=== PATIENT | male | born 1955 | race Caucasian/White ===

== ENCOUNTER 2019-10-07 01:52 | Day surgery (SDC) | payer BC, SELFPAY ==
[2019-09-25 07:52] VITALS: BP 160/84; PULSE 68; RESP 20; TEMP 36.6; O2SAT 96; BMI 30.6
[2019-10-07] VITALS (12 sets, daily range): BP systolic 101–155; BP diastolic 74–96; PULSE 55–79; RESP 12–20; TEMP 36.1–37.1; O2SAT 93–99
--- NOTE | ~2019-10-07 | XR_ITS ---
EXAMINATION: XR knee LT 2V DATE: 10/07/2019 15:08 INDICATION: Postoperative evaluation following left total knee arthroplasty. TECHNIQUE: Anteroposterior and lateral views of the left knee were obtained. COMPARISON: None. FINDINGS: Left total knee arthroplasty with patellar resurfacing appears well seated and in near anatomic align ment. No fractures identified. Expected postoperative subcutaneous and intra-articular gas. IMPRESSION: 1. Left total knee arthroplasty, negative for postoperative purposes. Reviewed, dictated and finalized at location [facility] [employer]
--- NOTE | 2019-10-07 08:55 | P.PNAN_ITS ---
Anes - Initial Pre Proc Eval Procedure: Operation Date: 10/07/19 10:30 Proposed Procedures p Left Total Knee Arthroplasty, Right Knee Injection - Solis Fuentes MD Date/Time: 10/07/19 08:55 Surgeon: Solis Fuentes MD Pre Op Diagnosis: OA Osvaldo Knee Patient Data Age: 63 Gender: M Height: 1.85 m Weight: 105.2 kg Last Vital Signs Temp 36.6 C 09/25/19 07:52 Pulse 68 09/25/19 07:52 Resp 20 09/25/19 07:52 BP 160/84 H 09/25/19 07:52 Pulse Ox 96 09/25/19 07:52 Allergies Allergy/AdvReac Type Severity Reaction Status Date / Time No Known Allergies Allergy Verified 09/25/19 08:16 Home Medications Medication Instructions Recorded Confirmed Type acetaminophen [Tylenol Extra 1,000 mg PO Q6H PRN 09/25/19 09/25/19 History Strength] cranberry 400 mg PO DAILY 09/25/19 09/25/19 History glucosamine sulfate [Glucosamine] 1,000 mg PO BID 09/25/19 09/25/19 History ibuprofen 200 mg PO DAILY PRN 09/25/19 09/25/19 History potassium chloride 10 meq PO DAILY 09/25/19 09/25/19 History pseudoephedrine HCl [Sudafed] 30 mg PO Q4-6H PRN 09/25/19 09/25/19 History Patient hx anesthesia problems: none Family hx anesthesia problems: none PMFSH Past Medical History Medical History (Updated 09/12/19 @ 09:53 by Solis Fuentes MD) Osteoarthritis of knee Surgical History Surgical History History of appendectomy Status post arthroscopic knee surgery Both knees Social History Social History Alcohol intake: current Additional occupation/education comments: [employer] Anes - Eval Final PreProcedure Day of Procedure 10/07/19 08:55 Patient weight: obese Heart: regular rate and rhythm Lungs: clear to auscultation and normal air movement Airway: Mallampati scale class II Neurological: alert and oriented Last oral intake: >/= 8 hours ASA classification: II Emergent: no Anesthetic plan: proceed Anesthesia type and monitoring: regional spinal and standard monitoring Informed Consent: The patient's anesthetic plan and its attendant risks and benefits were discussed with the patient/family/POA. Questions were solicited and answers provided to the satisfaction of the patient/family/POA.
--- NOTE | 2019-10-07 08:56 | WPDANESPNB ---
Anes - Peripheral Nerve Block Date/Time: 10/07/19 08:56 I have discussed with the patient/family/POA the placement of a peripheral nerve block for post-operative pain management, including associated risks, benefits, complications, and side effects. Alternative methods of post-operative analgesia were detailed. Questions were solicited and answers provided to the satisfaction of the patient/family/POA. Time-Out: A pre-procedural Time-Out was completed immediately before starting the procedure and confirmed: Patient Identification, Site, Procedure, Patient Position and the Availability of Requisite Equipment. Clinical Indications: Acute post-operative pain management requested by the operative surgeon. Nerve Block Insertion Note Anes-nerve block: adductor canal left Patient position: supine Skin prep: chlorhexidine Needle: 22 gauge, stimulating, insulated echogenic needle. Needle length: 80 mm Technique: ultrasound Injectate: bupivacaine 0.5% with epi 5 mcg/ml (30cc) Observations: tolerated well Complications: none Procedure start time:: 1133 Procedure end time:: 1135
[2019-10-07] MEDS: LACTATED RINGERS 1,000 ML 30 ML IV CONT ×2 (09:30→14:50)
[2019-10-07] MEDS: TRANEXAMIC ACID 1,000 MG in SODIUM CHLORIDE 0.9% IV 50 ML 120 MG IVPB (11:00)
--- NOTE | 2019-10-07 11:17 | WPDHPUPDATE1 ---
History and Physical Update Update Date/Time: 10/07/19 11:17 History and Physical has been reviewed, including an updated exam of the patient. There are NO changes in the patient's condition. Risks, benefits, and alternatives have been discussed and questions answered. Patient agrees to proceed with procedure.
[2019-10-07] MEDS: ceFAZolin 2 GM/D5W 50 ML 2 GM/50 ML BAG IVPB ×2 (12:26→20:43)
[2019-10-07] MEDS: TRANEXAMIC ACID 1,000 MG/10 ML AMPUL 1000 MG XX (12:53)
[2019-10-07] MEDS: TRIAMCINOLONE ACET INJ SUSP 50 MG/5 ML VIAL 20 MG IM (12:54)
[2019-10-07] MEDS: GENTAMICIN BONE CEMENT REFOBACIN 1 EACH TOPICAL (13:07)
[2019-10-07] MEDS: ceFAZolin SODIUM 1 GM VIAL IV PUSH (13:57)
--- NOTE | 2019-10-07 16:26 | P.OP_ITS ---
Procedure Note - Detailed Date of procedure: 10/07/19 Pre-op diagnosis: OA Osvaldo Knee Post-op diagnosis: same Procedure performed: 1. Left total knee replacement 2. Right knee intra-articular injection Description of procedure: The patient was identified and proper site identified. In the preop holding area the anesthesia team performed a left sub sartorial block after which the patient was taken to the operating room and transferred to the OR table positioning supine taking care to pad the torso and extremities. After a spinal anesthetic was administered, a nonsterile tourniquet was placed high on the left thigh. The left lower extremity was prepped and draped in the usual sterile fashion. The extremity was exsanguinated and with the knee flexed tourniquet was inflated to 300 mmHg remaining up for approximately 75 minutes. An anterior midline incision was made and a mid vastus approach was used. Infra and suprapatellar fat pads were excised. Patella was resected leaving 15 mm thickness and prepared for the 31 round three peg component. Using the intramedullary guide the distal femur was cut in the proper orientation for the size 72.5 femoral component. Using the extramedullary guide the tibia was cut perpendicular to the long axis protecting collateral ligaments and popliteal structures. It was sized to a 75. Flexion and extension gaps were balanced. Trial reduction was undertaken and the weight-bearing line was noted to passed through the center of the joint. Proximal tibia was drilled and punched in the proper orientation for the real component. Trial components were removed. The bone surfaces were washed with pulsatile lavage and dried. The real components were cemented simultaneously. The knee was held in extension and the patella held clamped until the cement had cured. Excess cement was removed from the joint. After trialing it was determined that the 10 mm insert gave full range of motion from 0-120 degrees of flexion and the patella tracked in the femoral groove with no lift-off. After final lavage the joint the real 10 insert was placed and secured with a locking bar. A Betadine and saline wash was placed into the wound and allowed to sit for approximately 3 minutes and then evacuated. Periarticular tissues were infiltrated with 60 cc of the arthroplasty solution. 1 g of tranexamic acid was left in the wound. The extensor mechanism was repaired with #2 Vicryl suture and 0 looped PDS suture. Subcu was reapproximated with three 0 Monocryl, and a two 0 strata fix subcuticular stitch with tissue adhesive for the skin. A sterile dressing was applied. He tolerated the procedure well, was awakened and extubated, transferred to the bed and was taken to recovery area in stable condition. There were no known intraoperative complications. Perioperative antibiotics were administered. Anesthesia: regional and spinal Surgeon: Solis Fuentes MD [employer]er: Doc Dennison Estimated blood loss (mL): 200 Tourniquet time (min): 75 Drains: No Packing: No Pathology: none sent Complications: No immediate complications Condition: stable Disposition: PACU
[2019-10-07] MEDS: SODIUM CHLORIDE 0.9% IV 1,000 ML 125 ML IV CONT (17:41)
[2019-10-07] MEDS: KETOROLAC 15 MG/ML VIAL (*BKC) IV PUSH (17:44)
[2019-10-07] MEDS: DOCUSATE SODIUM 100 MG CAPSULE PO (18:57)
[2019-10-08] MEDS: KETOROLAC 15 MG/ML VIAL (*BKC) IV PUSH ×2 (00:38→05:27)
[2019-10-08 01:05] VITALS: BP 109/53; PULSE 57; RESP 20; TEMP 36.8; O2SAT 97
[2019-10-08] MEDS: ceFAZolin 2 GM/D5W 50 ML 2 GM/50 ML BAG IVPB ×2 (04:58→11:46)
[2019-10-08 06:50] VITALS: BP 130/68; PULSE 58; RESP 20; TEMP 36.7; O2SAT 96
--- NOTE | 2019-10-08 06:55 | PM.PNORT ---
Progress Note: A&P Assessment and Plan (1) History of total knee replacement: Code(s): Z96.659 - Presence of unspecified artificial knee joint Status: Acute Assessment and Plan: 63-year-old male who is postop day one following left total knee replacement and doing very well. The surgery was discussed with him in detail. Will be discharged home today after 2nd physical therapy. He will follow up with me in approximately two weeks. I asked him to call with any questions prior to follow-up. Time Spent With Patient Time with patient: 15 - 25 minutes Subjective Subjective Date/Time Seen: 10/08/19 06:55 Post Op day: 1 Principal diagnosis: Status post left total knee replacement Review of Systems Constitutional: Constitutional: Denies chills and Denies fever(s) Eyes: Eyes: Reports no additional eye complaints ENT: Reports system reviewed and no additional complaints, except as documented Cardiovascular: Cardiovascular: Denies chest pain and Denies dyspnea on exertion Respiratory: Respiratory: Reports no additional respiratory complaints and Denies dyspnea on exertion Gastrointestinal: Gastrointestinal: Denies abdominal pain and Denies bloating Exam Const: General: cooperative, no acute distress and alert Nutritional Appearance: other Orientation/consciousness: patient oriented x3 Limitations: no limitations HENMT: Head: normal to inspection Ears: hearing grossly normal bilaterally Face and sinus: face symmetric Mouth: Yes moist mucous membranes Teeth and gingiva: fair dentition Eyes: Alignment and Position: alignment normal and position normal Sclera: sclerae normal Neck: Neck: normal visual inspection and nontender Chest: Chest palpation & inspection: normal inspection of the chest Resp: Effort & Inspection: normal respiratory effort and able to speak in complete sentences GI: Inspection: other Skin: General skin exam: normal color Rashes: no rashes Neuro: General: patient oriented x3 Cognition (Neuro): normal cognition Speech: normal speech Gait exam (Neuro): Other gait observations present Motor exam (neuro): 5/5 motor strength present throughout (Both lower extremities) Sensory Exam: normal sensation Extrem: General: normal to inspection and other Other: Exam of the left lower extremity reveals some bruising about the left knee anteriorly but very little swelling. No drainage from the incision. Calves are negative. Exam is otherwise unremarkable. Psych: Appearance: grossly normal Mental Status: mental status grossly normal Objective Data Vital Signs Vital Signs: Vital Signs - 24 hr 10/07/19 08:36 10/07/19 14:50 10/07/19 15:00 Temperature 97.0 F L 98.1 F Pulse Rate 69 79 66 Respiratory Rate 18 13 12 Blood Pressure 141/96 H 137/82 101/84 Pulse Oximetry 97 99 95 10/07/19 15:15 10/07/19 15:30 10/07/19 15:45 Temperature Pulse Rate 62 60 56 L Respiratory Rate 16 12 12 Blood Pressure 137/80 126/75 142/84 H Pulse Oximetry 97 94 95 10/07/19 16:00 10/07/19 16:15 10/07/19 16:30 Temperature 98.8 F 98.6 F Pulse Rate 57 L 55 L 58 L Respiratory Rate 12 18 18 Blood Pressure 142/78 H 150/83 H 154/82 H Pulse Oximetry 94 97 99 10/07/19 17:00 10/07/19 18:00 10/07/19 20:40 Temperature 98.6 F 98.6 F 98.1 F Pulse Rate 61 66 78 Respiratory Rate 18 20 20 Blood Pressure 155/93 H 135/81 133/74 Pulse Oximetry 98 97 93 10/08/19 01:05 10/08/19 06:50 Temperature 98.3 F 98.1 F Pulse Rate 57 L 58 L Respiratory Rate 20 20 Blood Pressure 109/53 L 130/68 Pulse Oximetry 97 96 Intake/Output Intake/Output: Intake & Output 10/05/19 10/06/19 10/07/19 10/08/19 23:59 23:59 23:59 23:59 Intake Total 1420 / 1420 2370 / 2370 Output Total 1325 / 1025.0 1400 / 1400 Balance 95 / 395.0 970 / 970 Meds/Results Medications: Active Medications Generic Name Dose Route Start Last Admin Trade Name Freq PRN Reason Stop Dose Admin Docusate Sodium 100 mg 09/19
--- NOTE | 2019-10-08 07:05 | WPDANESPN ---
Anes - Prog Note Post-Op Date/Time: 10/08/19 07:05 Cardiovascular status: normal Respiratory status: normal Airway patency: baseline Mental status: baseline Post-Op hydration status: normal Vital Signs: Last Vital Signs Temp 36.7 C 10/08/19 06:50 Pulse 58 L 10/08/19 06:50 Resp 20 10/08/19 06:50 BP 130/68 10/08/19 06:50 Pulse Ox 96 10/08/19 06:50 I/O: Intake & Output 10/07/19 10/07/19 10/08/19 15:59 23:59 07:59 Intake Total 210 1210 2370 Output Total 1325 1400 Balance 210 -115 970 Post-procedural complaints: none Patient Feedback: Patient satisfied with anesthetic care.
[2019-10-08] MEDS: DOCUSATE SODIUM 100 MG CAPSULE PO (09:34)
[2019-10-08] MEDS: POTASSIUM CHLORIDE 10 MEQ TABLET.ER PO (09:34)
[2019-10-08] MEDS: RIVAROXABAN 10 MG TABLET PO (12:34)
== END 2019-10-08 14:00 | disposition home or self-care (01) ==
LOC: ANHSURGERY 13:14 → ANH3MEDSUR 10-08 12:43
PROVIDERS: PCP Internal Medicine; Visit Provider Orthopaedic Surgery
PROC: (CPT 27447; principal; 2019-10-07 10:30)
DX: M17.0 Bilateral primary osteoarthritis of knee (principal); G89.18 Other acute postprocedural pain
CPT/HCPCS: 27447; 20610; 64447; 73560; 97110; 97116; 97161; 97165; 97530; A9270; C1713; C1776; J0131; J0171; J0690; J1885; J2250; J2270; J2370; J2405; J2704; J2795; J3010; J3301; J7030; J7120

== ENCOUNTER 2019-11-11 01:51 | Day surgery (SDC) | payer BC, SELFPAY ==
[2019-11-07 08:48] VITALS: BMI 30.2
[2019-11-11] VITALS (8 sets, daily range): BP systolic 133–157; BP diastolic 74–92; PULSE 64–89; RESP 12–18; TEMP 36.1–36.3; O2SAT 96–99
--- NOTE | 2019-11-11 08:10 | P.PNAN_ITS ---
Anes - Initial Pre Proc Eval Procedure: Operation Date: 11/11/19 10:30 Proposed Procedures p Evaluation Under Anesthesia of Left Total Knee - Solis Fuentes MD Date/Time: 11/11/19 08:10 Surgeon: Solis Fuentes MD Pre Op Diagnosis: stiffness of left total knee replacement Patient Data Age: 64 Gender: M Height: 1.83 m Weight: 101.15 kg Allergies Allergy/AdvReac Type Severity Reaction Status Date / Time No Known Allergies Allergy Verified 11/07/19 08:48 Home Medications Medication Instructions Recorded Confirmed Type cranberry 400 mg PO DAILY 09/25/19 11/07/19 History glucosamine sulfate [Glucosamine] 1,000 mg PO DAILY 09/25/19 11/07/19 History cyclobenzaprine 10 mg tablet 10 mg PO Q12H #20 tablet 10/29/19 11/07/19 Rx acetaminophen [Tylenol Arthritis 650 mg PO Q8H 11/07/19 11/07/19 History Pain] Patient hx anesthesia problems: none Family hx anesthesia problems: none PMFSH Past Medical History Medical History (Updated 11/11/19 @ 08:12 by Camilo Gillette MD) Obesity Osteoarthritis of knee Surgical History Surgical History (Updated 11/07/19 @ 08:12 by Solis Fuentes MD) History of appendectomy History of total left knee replacement September 2019 Status post arthroscopic knee surgery Both knees Social History Social History Smoking status: Former smoker Tobacco type: cigarettes Additional smoking assessment comments: 1 pack/6 months Alcohol intake: current Drinks per week: 10 Substance use: never Additional occupation/education comments: [employer] Spiritual care concerns: No Agree to blood products: Yes Anes - Eval Final PreProcedure Day of Procedure 11/11/19 08:10 Patient weight: obese Heart: regular rate and rhythm Lungs: clear to auscultation and normal air movement Airway: Mallampati scale class II Neurological: alert and oriented Last oral intake: >/= 8 hours ASA classification: II Emergent: no Anesthetic plan: proceed Anesthesia type and monitoring: general GIVS Informed Consent: The patient's anesthetic plan and its attendant risks and benefits were discussed with the patient/family/POA. Questions were solicited and answers provided to the satisfaction of the patient/family/POA.
[2019-11-11] MEDS: LACTATED RINGERS 1,000 ML 30 ML IV CONT (09:00)
--- NOTE | 2019-11-11 09:12 | WPDANESPNB ---
Anes - Peripheral Nerve Block Date/Time: 11/11/19 09:12 I have discussed with the patient/family/POA the placement of a peripheral nerve block for post-operative pain management, including associated risks, benefits, complications, and side effects. Alternative methods of post-operative analgesia were detailed. Questions were solicited and answers provided to the satisfaction of the patient/family/POA. Time-Out: A pre-procedural Time-Out was completed immediately before starting the procedure and confirmed: Patient Identification, Site, Procedure, Patient Position and the Availability of Requisite Equipment. Clinical Indications: Acute post-operative pain management requested by the operative surgeon. Nerve Block Insertion Note Anes-nerve block: adductor canal left Patient position: supine Skin prep: chlorhexidine Needle: 22 gauge, stimulating, insulated echogenic needle. Needle length: 80 mm Technique: ultrasound Technique comment: in plane Injectate: bupivacaine 0.5% with epi 5 mcg/ml (30cc) and dexamethasone (mg) (4) Observations: tolerated well Complications: none Procedure start time:: 1030 Procedure end time:: 1034
--- NOTE | 2019-11-11 10:16 | WPDHPUPDATE1 ---
History and Physical Update Update Date/Time: 11/11/19 10:16 History and Physical has been reviewed, including an updated exam of the patient. There are NO changes in the patient's condition. Risks, benefits, and alternatives have been discussed and questions answered. Patient agrees to proceed with procedure. As noted in the addendum to the H and P, this is a left knee that is going to be evaluated today.
--- NOTE | 2019-11-11 11:32 | PM.PROC ---
Procedure Note - Detailed Date of procedure: 11/11/19 Pre-op diagnosis: stiffness of left total knee replacement Post-op diagnosis: same Procedure performed: EUA left knee with manipulation under anesthesia. Description of procedure: Patient was identified and proper site identified. In the preop holding area the anesthesia team performed a left lower extremity block. He was then taken to the operating room and left on the patient to [facility]. After general anesthetic induction with innovation and administration of brief paralysis, the left knee was examined. Pre manipulation is range of motion was from minus three to approximately 70? of flexion. A gentle manipulation we was carried out which increases flexion to 115?. There were no known complications. He was awakened, extubated and then taken back to the recovery area in stable condition. Anesthesia: GLMA Surgeon: Solis Fuentes MD Estimated blood loss (mL): 0 Tourniquet time (min): 0 Drains: No Packing: No Pathology: none sent Complications: No immediate complications Condition: stable Disposition: PACU
== END 2019-11-11 13:14 | disposition home or self-care (01) ==
PROVIDERS: Visit Provider Orthopaedic Surgery
PROC: (CPT 27570; principal; 2019-11-11 10:30)
DX: M25.662 Stiffness of left knee, not elsewhere classified (principal); Z96.652 Presence of left artificial knee joint; E66.9 Obesity, unspecified; Z68.29 Body mass index [BMI] 29.0-29.9, adult; Z87.891 Personal history of nicotine dependence
CPT/HCPCS: 27570; A9270; J0330; J1100; J2250; J2405; J2704; J3010; J7120

== ENCOUNTER 2020-02-28 00:10 | Outpatient (CLI) | payer BC, SELFPAY ==
[2020-02-28 17:48] LABS: SARS-CoV-2 RNA PCR Negative
== END 2020-02-28 00:11 | disposition home or self-care (01) ==
LOC: ANHCOVIDDT 00:10
PROVIDERS: Visit Provider Orthopaedic Surgery
DX: Z01.812 Encounter for preprocedural laboratory examination (principal); Z20.828 Contact with and (suspected) exposure to other viral communicable diseases
CPT/HCPCS: 87635; C9803; U0003

== ENCOUNTER 2020-02-28 07:53 | Outpatient (CLI) | payer BC, SELFPAY ==
[2020-02-28 08:21] LABS: Basophils Absolute Auto 0.1 K/mm3 (0.0-0.1); Basophils Percent Auto 1.1 % (0.2-1.2); Eosinophils Percent Auto 0.9 % (0-4.4); Hematocrit 51.3 % (42.0-52.0); Immature Granulocyte Absolute 0.01 K/mm3 (0.00-0.031); Immature Granulocyte Percent A 0.2 % (0-0.5); Lymphocytes Absolute Auto 1.74 K/mm3 (0.9-3.2); Lymphocytes Percent Auto 37.5 % (18.3-44.2); Mean Corpuscular HGB Conc 33.1 g/dl (32-36); Mean Corpuscular Hemoglobin 32.4 pg (26-34); Mean Corpuscular Volume 97.7 fl (80-100); Mean Platelet Volume 10.9 fl (7.4-10.4); Monocytes Absolute Auto 0.5 K/mm3 (0.1-0.6); Monocytes Percent Auto 9.7 % (2.6-8.5); Neutrophils Absolute Auto 2.4 K/mm3 (1.3-6.7); Neutrophils Percent Auto 50.6 % (45.5-73.1); Platelet Count Result 282 k/mm3 (150-375); Red Blood Count 5.25 M/mm3 (4.6-6.20); White Blood Count 4.6 K/mm3 (4.5-10.0)
[2020-02-28 08:33] LABS: Hemoglobin A1C 5.7 % (<5.7)
[2020-02-28 08:34] LABS: Urine Cotinine NEGATIVE
[2020-02-28 08:35] LABS: Albumin Level 4.8 g/dL (3.5-5.1); Estimated Glomerular Filt Rate > 60; Glucose 102 mg/dL (75-110)
== END 2020-02-28 07:54 | disposition home or self-care (01) ==
LOC: ANHSURGERY 07:56
PROVIDERS: PCP Internal Medicine; Visit Provider Orthopaedic Surgery
DX: M17.11 Unilateral primary osteoarthritis, right knee (principal); Z01.812 Encounter for preprocedural laboratory examination
CPT/HCPCS: 36415; 80307; 82040; 82565; 82947; 83036; 85025; 86850; 86900; 86901; 87081

== ENCOUNTER 2020-03-02 01:19 | Day surgery (SDC) | payer BC, SELFPAY ==
[2020-02-21 14:54] VITALS: BMI 29.2
[2020-03-02] VITALS (12 sets, daily range): BP systolic 101–157; BP diastolic 63–88; PULSE 53–77; RESP 11–21; TEMP 35.6–36.8; O2SAT 96–100; BMI 28.8
--- NOTE | ~2020-03-02 | XR_ITS ---
EXAMINATION: XR knee RT 2V DATE: 03/02/2020 10:35 INDICATION: Right knee arthroplasty. Postop. TECHNIQUE: 2 views of right knee were obtained. COMPARISON: Right knee radiographs 09/12/2019 FINDINGS: There is a total right knee arthroplasty with patellar resurfacing. Tibia demonstrate 8 deg deloris posterior angulation with respect to tibial component. There is gas in the knee joint and soft t issues, consistent with recent surgery. IMPRESSION: 1. New total right knee arthroplasty. Reviewed, dictated and finalized at location A.
[2020-03-02] MEDS: LACTATED RINGERS 1,000 ML 30 ML IV CONT ×2 (06:25→10:20)
[2020-03-02] MEDS: TRANEXAMIC ACID 1,000MG/ISO100 1,000 MG/100 ML BAG 200 MG IVPB (06:30)
--- NOTE | 2020-03-02 06:41 | P.PNAN_ITS ---
Anes - Initial Pre Proc Eval Procedure: Operation Date: 03/02/20 07:30 Proposed Procedures p Right Total Knee Arthroplasty - Solis Fuentes MD Date/Time: 03/02/20 06:41 Surgeon: Solis Fuentes MD Pre Op Diagnosis: OA rt knee Patient Data Age: 64 Gender: M Height: 1.83 m Weight: 97.6 kg Allergies Allergy/AdvReac Type Severity Reaction Status Date / Time No Known Allergies Allergy Verified 02/21/20 14:31 Home Medications Medication Instructions Recorded Confirmed Type acetaminophen [Tylenol Arthritis 650 mg PO Q8H 11/07/19 02/21/20 History Pain] Patient hx anesthesia problems: none Family hx anesthesia problems: none [facility] Social History Social History (Updated 03/02/20 @ 06:41 by Chaz Lemus DO) Smoking status: Former smoker Tobacco type: cigarettes Additional smoking assessment comments: 1 pack/6 months Alcohol intake: current Drinks per week: 10 Alcohol use details: 1-2 drinks/daily Substance use: never Additional occupation/education comments: [employer] Spiritual care concerns: No Agree to blood products: Yes Anes - Eval Final PreProcedure Day of Procedure 03/02/20 06:41 Patient weight: overweight Heart: regular rate and rhythm Lungs: clear to auscultation and normal air movement Airway: Mallampati scale class II Neurological: alert and oriented Last oral intake: >/= 8 hours ASA classification: III Emergent: no Anesthetic plan: proceed Anesthesia type and monitoring: regional spinal and standard monitoring Informed Consent: The patient's anesthetic plan and its attendant risks and benefits were discussed with the patient/family/POA. Questions were solicited and answers provided to the satisfaction of the patient/family/POA.
--- NOTE | 2020-03-02 06:42 | WPDANESPNB ---
Anes - Peripheral Nerve Block Date/Time: 03/02/20 06:42 I have discussed with the patient/family/POA the placement of a peripheral nerve block for post-operative pain management, including associated risks, benefits, complications, and side effects. Alternative methods of post-operative analgesia were detailed. Questions were solicited and answers provided to the satisfaction of the patient/family/POA. Time-Out: A pre-procedural Time-Out was completed immediately before starting the procedure and confirmed: Patient Identification, Site, Procedure, Patient Position and the Availability of Requisite Equipment. Clinical Indications: Acute post-operative pain management requested by the operative surgeon. Nerve Block Insertion Note Anes-nerve block: adductor canal right Patient position: supine Skin prep: chlorhexidine Needle: 22 gauge, stimulating, insulated echogenic needle. Needle length: 80 mm Technique: ultrasound Injectate: bupivacaine 0.5% with epi 5 mcg/ml (30cc) Observations: tolerated well Complications: none Procedure start time:: 711 Procedure end time:: 714
--- NOTE | 2020-03-02 07:10 | WPDHPUPDATE1 ---
History and Physical Update Update Date/Time: 03/02/20 07:10 History and Physical has been reviewed, including an updated exam of the patient. There are NO changes in the patient's condition. Risks, benefits, and alternatives have been discussed and questions answered. Patient agrees to proceed with procedure.
[2020-03-02] MEDS: ceFAZolin 2 GM/D5W 50 ML 2 GM/50 ML BAG IVPB ×3 (07:39→23:04)
[2020-03-02] MEDS: TRANEXAMIC ACID 1,000 MG/10 ML AMPUL 1000 MG TOPICAL (09:25)
[2020-03-02] MEDS: ceFAZolin SODIUM 1 GM VIAL IV PUSH (09:47)
[2020-03-02] MEDS: GENTAMICIN BONE CEMENT REFOBACIN 1 EACH TOPICAL (10:04)
--- NOTE | 2020-03-02 10:17 | PM.PROC ---
Procedure Note - Detailed Date of procedure: 03/02/20 Pre-op diagnosis: OA rt knee Post-op diagnosis: same Procedure performed: Right total knee replacement Description of procedure: The patient was identified and proper site identified. In the preop holding area the anesthesia team performed a right sub sartorial block after which the patient was taken to the operating room and transferred to the OR table positioning supine taking care to pad the torso and extremities. After a spinal anesthetic was administered a nonsterile tourniquet was placed high on the left thigh. The left lower extremity was prepped and draped in the usual sterile fashion. The extremity was exsanguinated and with the knee flexed tourniquet was inflated to 300 mmHg remaining up for approximately 72 minutes. An anterior midline incision was made and a mid vastus approach was used. Infra and suprapatellar fat pads were excised. Patella was resected leaving 15 mm thickness and prepared for the size 31 round three peg component. Using the intramedullary guide the distal femur was cut in the proper orientation for the size 72.5 femoral component. Using the extramedullary guide the tibia was cut perpendicular to the long axis protecting collateral ligaments and popliteal structures. It was sized to a 75. Flexion and extension gaps were balanced. Trial reduction was undertaken and the weight-bearing line was noted to passed through the center of the joint. Proximal tibia was drilled and punched in the proper orientation for the real component. Trial components were removed. The bone surfaces were washed with pulsatile lavage and dried. The real components were cemented simultaneously. The knee was held in extension and the patella held clamped until the cement had cured. Excess cement was removed from the joint. After trialing it was determined that the 12 mm insert gave full range of motion from 0 to 120 degrees of flexion and the patella tracked in the femoral groove with slight lift-off. An extra synovial lateral release was performed which corrected the patellar tracking. After final lavage the joint the real 12 insert was placed and secured with a locking bar. A Betadine and saline wash was placed into the wound and allowed to sit for approximately 3 minutes and then evacuated. Periarticular tissues were infiltrated with 60 cc of the arthroplasty solution. 1 g of tranexamic acid was left in the wound. The extensor mechanism was repaired with #2 Vicryl suture and 0 looped PDS suture. Subcu was reapproximated with two O strata fix and tissue adhesive for the skin. A sterile dressing was applied. He tolerated the procedure well, was awakened and extubated, transferred to the bed and was taken to recovery area in stable condition. There were no known intraoperative complications. Perioperative antibiotics were administered. Anesthesia: regional and spinal Surgeon: Solis Fuentes MD Estimated blood loss (mL): 100 Tourniquet time (min): 72 Drains: No Packing: No Pathology: none sent Complications: No immediate complications Condition: stable Disposition: PACU
--- NOTE | 2020-03-02 10:47 | SUR.PHASEI ---
PORTABLE XRAY DONE AT BEDSIDE. PILLOW UNDER RIGHT CALF.
--- NOTE | 2020-03-02 10:49 | SUR.PHASEI ---
DARIANA HERRERA APPLIED TO HIGH SETTING AT 1030
[2020-03-02] MEDS: SODIUM CHLORIDE 0.9% IV 1,000 ML 125 ML IV CONT (12:59)
[2020-03-02] MEDS: KETOROLAC 15 MG/ML VIAL (*BKC) IV PUSH ×2 (15:36→23:04)
--- NOTE | 2020-03-02 15:47 | PC.NURSE ---
hassan discontinued and drain 1400.
[2020-03-02] MEDS: DOCUSATE SODIUM 100 MG CAPSULE PO (17:26)
[2020-03-02] MEDS: FAMOTIDINE 20 MG TABLET PO (20:53)
[2020-03-03 02:00] VITALS: BP 137/76; PULSE 61; RESP 20; TEMP 36.8; O2SAT 98
[2020-03-03] MEDS: KETOROLAC 15 MG/ML VIAL (*BKC) IV PUSH (05:55)
[2020-03-03 06:00] VITALS: BP 157/79; PULSE 60; RESP 20; TEMP 36.9; O2SAT 98
--- NOTE | 2020-03-03 07:32 | PM.PNORT ---
Progress Note: A&P Assessment and Plan (1) History of total right knee replacement: Code(s): Z96.651 - Presence of right artificial knee joint Status: Acute Assessment and Plan: 64-year-old male postop day one right total knee replacement doing very well. Surgery discussed and instructions were reviewed. He will be discharged home later today. I also reviewed with his yesterday the plan moving forward. He has an appointment to see me in approximately two weeks. Time Spent With Patient Time with patient: 15 - 25 minutes Subjective Subjective Date/Time Seen: 03/03/20 07:32 Post Op day: 1 (Right total knee replacement) Principal diagnosis: Status post right total knee replacement for osteoarthritis of the knee Review of Systems Constitutional: Constitutional: Denies chills and Denies fever(s) Eyes: Eyes: Reports no additional eye complaints ENT: Reports system reviewed and no additional complaints, except as documented Cardiovascular: Cardiovascular: Denies chest pain and Denies dyspnea on exertion Respiratory: Respiratory: Reports no additional respiratory complaints and Denies dyspnea on exertion Gastrointestinal: Gastrointestinal: Denies abdominal pain and Denies bloating Exam Const: General: cooperative, no acute distress and alert Nutritional Appearance: other Orientation/consciousness: patient oriented x3 Limitations: no limitations HENMT: Head: normal to inspection Ears: hearing grossly normal bilaterally Face and sinus: face symmetric Mouth: Yes moist mucous membranes Teeth and gingiva: fair dentition Eyes: Alignment and Position: alignment normal and position normal Sclera: sclerae normal Neck: Neck: normal visual inspection and nontender Chest: Chest palpation & inspection: normal inspection of the chest Resp: Effort & Inspection: normal respiratory effort and able to speak in complete sentences GI: Inspection: normal to inspection Skin: General skin exam: normal color Rashes: no rashes Neuro: General: patient oriented x3 Cognition (Neuro): normal cognition Speech: normal speech Gait exam (Neuro): Other gait observations present Motor exam (neuro): 5/5 motor strength present throughout Sensory Exam: normal sensation Extrem: General: normal to inspection and other Other: Exam of the right lower extremity reveals smooth motion in the hip and the knee. Range is 0-120 degrees of flexion. Scant amount of serosanguineous drainage distal portion of wound. No erythema. Calves negative. Psych: Appearance: grossly normal Mental Status: mental status grossly normal Objective Data Vital Signs Vital Signs: Vital Signs - 24 hr 03/02/20 10:20 03/02/20 10:35 03/02/20 10:44 Temperature 96.1 F L Pulse Rate 70 57 L 55 L Respiratory Rate 12 15 11 L Blood Pressure 101/63 126/68 121/74 Pulse Oximetry 100 99 97 03/02/20 11:00 03/02/20 11:15 03/02/20 11:35 Temperature 97.3 F L Pulse Rate 53 L 56 L 53 L Respiratory Rate 15 17 Blood Pressure 117/74 126/81 127/77 Pulse Oximetry 97 96 97 03/02/20 11:50 03/02/20 12:20 03/02/20 13:20 Temperature 97.2 F L 97 F L 98.2 F Pulse Rate 54 L 59 L 72 Respiratory Rate 15 21 H 19 Blood Pressure 138/81 142/87 H 144/84 H Pulse Oximetry 96 99 96 03/02/20 18:39 03/02/20 22:00 03/03/20 02:00 Temperature 97.3 F L 97.0 F L 98.2 F Pulse Rate 77 65 61 Respiratory Rate 19 20 20 Blood Pressure 138/72 157/78 H 137/76 Pulse Oximetry 99 98 98 03/03/20 06:00 Temperature 98.5 F Pulse Rate 60 Respiratory Rate 20 Blood Pressure 157/79 H Pulse Oximetry 98 Intake/Output Intake/Output: Intake & Output 02/29/20 03/01/20 03/02/20 03/03/20 23:59 23:59 23:59 23:59 Intake Total 3960 / 3960 600 / 600 Output Total 1875 / 1550.0 1450 / 1450 Balance 2085 / 2410.0 -850 / -850 Meds/Results Medications: Active Medications Generic Name Dose Route Start Last Admin Trade Name Freq PRN Reason Stop Dose Admin Docusa
--- NOTE | 2020-03-03 07:41 | P.DS_ITS ---
DS: Admitting Diagnosis Admitting Diagnosis Admitting Diagnosis: Unilateral primary osteoarthritis, right knee DS: Discharge Diagnosis Discharge Diagnosis (1) History of total right knee replacement: Code(s): Z96.651 - Presence of right artificial knee joint Status: Acute DS: Summary Time Spent with Patient Time attestation: Total time spent providing and/or coordinating discharge services: Discharge Plan Discharge Patient Disposition: Home, Self-Care Discharge Instructions: * 3 times daily for 20 minutes each time, reclining in bed with ice packs over the incision and a pillow underneath the affected calf. * Daily dressing change with island dressing or gauze and an ASTRID wrap * Be sure to read through all the information that came from a my office and the hospital. Most of the answer was you will need can be found that material. * Call the office with any questions that you cannot find answers to, or concerns you may have. * After the Xarelto is completed, start taking one coated 325 mg aspirin daily and do this for four more weeks. * Be sure to get up and move around several times daily but do not overdo it. * Please call [facility] at as soon as possible to verify your follow-up appointment to be seen in 2 weeks. Also, call the office with any orthopedic/surgical related questions prior to follow-up. Discharge Medications: New Xarelto 10 mg Tablet 10 mg PO Q24H Qty: 0 RF: 0 oxycodone-acetaminophen 5-325 mg Tablet 1 tablet PO Q4HR Qty: 40 RF: 0 Continued pseudoephedrine HCl [Sudafed] 30 mg Tablet 30 mg PO Q4-6H PRN (Reason: Congestion) RF: 0 Held acetaminophen [Tylenol Arthritis Pain] 650 mg Tablet Extended Release 650 mg PO Q8H RF: 0 Hold Instructions: Resume on 03/05/20. Follow the instructions provided by my office. glucosamine sulfate [Glucosamine] 500 mg Tablet 500 mg PO BID RF: 0 Hold Instructions: Resume on 03/16/20. Quality VTE Prophylaxis VTE prophylaxis: mechanical ordered and pharmacologic ordered
[2020-03-03] MEDS: DOCUSATE SODIUM 100 MG CAPSULE PO (08:24)
[2020-03-03] MEDS: polyethylene glycoL 3350 17 GM POWD.PACK PO (08:24)
[2020-03-03] MEDS: RIVAROXABAN 10 MG TABLET PO (08:24)
[2020-03-03] MEDS: FAMOTIDINE 20 MG TABLET PO (08:24)
[2020-03-03] MEDS: ceFAZolin 2 GM/D5W 50 ML 2 GM/50 ML BAG IVPB (08:25)
[2020-03-03 09:46] VITALS: BP 146/72; PULSE 71; RESP 19; TEMP 37.1; O2SAT 98
--- NOTE | 2020-03-03 10:53 | WPDANESPN ---
Anes - Prog Note Post-Op Date/Time: 03/03/20 10:53 Cardiovascular status: normal Respiratory status: normal Airway patency: baseline Mental status: baseline Post-Op hydration status: normal Vital Signs: Last Vital Signs Temp 37.1 C 03/03/20 09:46 Pulse 71 03/03/20 09:46 Resp 19 03/03/20 09:46 BP 146/72 H 03/03/20 09:46 Pulse Ox 98 03/03/20 09:46 I/O: Intake & Output 03/02/20 03/03/20 03/03/20 23:59 07:59 15:59 Intake Total 2230 600 240 Output Total 1450 Balance 2230 -850 240 Post-procedural complaints: none Patient Feedback: Patient satisfied with anesthetic care. Other Findings: pt being discharged
--- NOTE | 2020-03-03 14:13 | PCCCNOTE ---
On 03/03/20, the student, Reena Hernandez, provided care and completed [facility] documentation on this patient. I have reviewed the student's documentation and agree with the findings.
[2020-03-03 15:28] VITALS: O2SAT 97
== END 2020-03-03 11:05 | disposition home or self-care (01) ==
LOC: ANHSURGERY 10:36 → ANH2MED 11:58
PROVIDERS: PCP Internal Medicine; Visit Provider Orthopaedic Surgery
PROC: (CPT 27447; principal; 2020-03-02 07:30)
DX: M17.11 Unilateral primary osteoarthritis, right knee (principal); G89.18 Other acute postprocedural pain; Z87.891 Personal history of nicotine dependence
CPT/HCPCS: 27447; 64447; 73560; 97110; 97116; 97161; 97165; 97530; A9270; C1713; C1776; J0131; J0171; J0690; J1100; J1170; J1885; J2001; J2250; J2270; J2704; J2795; J3010; J7030; J7120

== ENCOUNTER 2020-03-11 00:40 | Outpatient (CLI) | payer BC, SELFPAY ==
[2020-03-11 17:34] LABS: SARS-CoV-2 RNA PCR Negative
== END 2020-03-11 00:41 | disposition home or self-care (01) ==
LOC: ANHCOVIDDT 00:40
PROVIDERS: Visit Provider Orthopaedic Surgery
DX: Z01.812 Encounter for preprocedural laboratory examination (principal); Z11.59 Encounter for screening for other viral diseases
CPT/HCPCS: 87635; C9803; U0003

== ENCOUNTER 2020-03-12 01:49 | Day surgery (SDC) | payer BC, SELFPAY ==
[2020-03-11 10:16] VITALS: BMI 29.2
--- NOTE | 2020-03-12 11:06 | WPDANESEPPF ---
Anes - Initial Pre Proc Eval Procedure: Operation Date: 03/12/20 13:00 Proposed Procedures p Debridement and Wound Closure Right Knee - Solis Fuentes MD Date/Time: 03/12/20 11:06 Surgeon: Solis Fuentes MD Pre Op Diagnosis: s/p right total knee Patient Data Age: 64 Gender: M Height: 1.83 m Weight: 97.6 kg Allergies Allergy/AdvReac Type Severity Reaction Status Date / Time No Known Allergies Allergy Verified 03/11/20 10:16 Home Medications Medication Instructions Recorded Confirmed Type acetaminophen 650 mg 650 mg PO Q8H 11/07/19 03/11/20 History tablet,extended release rivaroxaban [Xarelto] 10 mg PO Q24H #0 tablet 03/03/20 03/11/20 Rx PMFSH Past Medical History Medical History (Updated 03/12/20 @ 11:08 by Chaz Lemus DO) Osteoarthritis of knee Surgical History Surgical History (Updated 03/10/20 @ 14:59 by Solis Fuentes MD) History of appendectomy History of total knee replacement History of total left knee replacement September 2019 History of total right knee replacement February 2020 Status post arthroscopic knee surgery Both knees Social History Social History (Updated 03/12/20 @ 11:08 by Chaz Lemus DO) Smoking status: Former smoker Tobacco type: cigarettes Additional smoking assessment comments: 1 pack/6 months Alcohol intake: current Drinks per week: 10 Alcohol use details: 1-2 drinks daily Substance use: never Additional occupation/education comments: [employer] Gender identity (if verbalized by the patient): Male Spiritual care concerns: No Agree to blood products: Yes Anes - Eval Final PreProcedure Day of Procedure 03/12/20 11:06 Patient weight: overweight Heart: regular rate and rhythm Lungs: clear to auscultation and normal air movement Airway: Mallampati scale class II Neurological: alert and oriented Last oral intake: >/= 8 hours ASA classification: III Emergent: no Anesthetic plan: proceed Anesthesia type and monitoring: general LMA and standard monitoring Informed Consent: The patient's anesthetic plan and its attendant risks and benefits were discussed with the patient/family/POA. Questions were solicited and answers provided to the satisfaction of the patient/family/POA.
--- NOTE | 2020-03-12 12:17 | WPDHPUPDATE1 ---
History and Physical Update Update Date/Time: 03/12/20 12:17 History and Physical has been reviewed, including an updated exam of the patient. Since he was seen in the office, the bleeding at the distal portion of his wound has stopped. Surgery has been canceled. This was discussed with the patient, and also with his by telephone.
--- NOTE | 2020-03-12 12:33 | SUR.PREOP ---
1200: DR. KING HERE TO SEE PT FOR EVAL. IF SURGERY STILL NEEDED. CASE CANCELLED.
== END 2020-03-12 13:00 | disposition home or self-care (01) ==
PROVIDERS: PCP Internal Medicine; Visit Provider Orthopaedic Surgery
DX: T81.89XA Other complications of procedures, not elsewhere classified, initial encounter (principal); Y83.8 Other surgical procedures as the cause of abnormal reaction of the patient, or of later complication, without mention of misadventure at the time of the procedure; Z53.8 Procedure and treatment not carried out for other reasons
CPT/HCPCS: 99211; G0463; J0690